=== PATIENT | female | born 1945 | race Caucasian/White ===

== ENCOUNTER 2024-03-25 10:58 | Emergency (ER) | payer MEDICARE, BC ==
[~2024-03-25] VITALS: Ht 165.1 cm; Wt 85.0 kg
[2024-03-25 11:29] VITALS: PULSE 59; TEMP 97.3
[2024-03-25] MEDS ORDERED: LIDO700A32 TD (15:31)
[2024-03-25] MEDS ORDERED: DICL20GE TOP (15:31)
[2024-03-25 15:40] VITALS: BP 134/77; RESP 18; O2SAT 98
== END 2024-03-25 15:44 | disposition home or self-care (01) ==
LOC: ER 10:58
DX: S93.401A Sprain of unspecified ligament of right ankle, initial encounter (principal); M79.604 Pain in right leg; G30.9 Alzheimer's disease, unspecified; X58.XXXA Exposure to other specified factors, initial encounter; Y93.89 Activity, other specified; Y92.89 Other specified places as the place of occurrence of the external cause; Y99.8 Other external cause status
CPT/HCPCS: 73590; 73610; 73630; 99284; A6449